=== PATIENT | male | born 1955 | race Caucasian/White ===

== ENCOUNTER 2016-07-23 08:02 | Emergency (ER) | payer BC ==
[~2016-07-23] VITALS: Ht 180.3 cm; Wt 111.0 kg
[~2016-07-23 08:02] MED LIST: AML5T PO; ATOR80TA73 PO; CLOP75TA28 PO; DULA1.5P SC; INSU100I10 IJ; MTP50T PO; OLME20TA5 PF; OMEG-103 PO
--- OUTSIDE RECORDS SUMMARY | 2016-07-23 08:05 | XMS REPORT | Continuity of Care Document ---
Author Author [facility] Address Unknown Phone Unavailable Care Team Providers Care Tactical Deception Plans Officer Name Role Phone Ugo Bartlett MD PCP [phone] Insurance Providers Payer Name Policy Number Subscriber Name Relationship [facility] [id number] Agustin Leiva 20 Self / Same As Patient Advance Directives Directive Response Recorded Date/Time Advanced Directives No 01/06/16 4:16pm Problems Active Problems Medical Problem Onset Date Status Chest pain Unknown Acute Medications Current Home Medications Medication Dose Units Route Directions Days/Qty Instructions Start Date Insulin Glargine,Hum.rec.anlog (Lantus Solostar) 100 Unit/1 Ml 34 Units Injection Daily 15 01/06/16 Dulaglutide 1.5 Mg/0.5 Ml 1.5 Unit SUBCUTANEOUS As Directed 2 01/06/16 Clopidogrel Bisulfate 75 Mg 75 Unit ORAL Daily 30 01/06/16 Bigler-3 Acid Ethyl Esters 1 Gm 1 Gm ORAL Daily 120 01/06/16 Metoprolol Tartrate (Lopressor) 50 Mg 50 Mg ORAL Daily 60 01/06/16 Atorvastatin Calcium 80 Mg 80 Mg ORAL Daily 30 01/06/16 Amlodipine Besylate (Norvasc) 5 Mg 5 Mg ORAL Daily 30 01/06/16 Olmesartan Medoxomil 20 Mg 20 Mg Perfusion Daily 30 01/06/16 Social History Query Response Start Date Stop Date Smoking Status Never smoker Hospital Discharge Instructions Current inpatient/outpatient. Discharge instructions are currently unavailable. Plan of Care Prescriptions Functional Status No functional status results. Allergies, Adverse Reactions, Alerts No known allergies. Immunizations Name Given Type Status Date Influenza Vaccine Received if Current 04/25/15 Historical Historical Vital Signs Acute Vital Signs Vital Response Date/Time Temperature (Fahrenheit) 97.7 01/06/2016 6:17pm Pulse 61 bpm 01/06/2016 6:17pm Respirations 17 01/06/2016 6:17pm Results Laboratory Results Test Name Result Units Flags Reference Collection Date/Time Result Date/ Time Comments White Blood Count 6.69 10^3uL 4.0-11.0 01/06/2016 4:01/06/2016 4: 36pm Red Blood Count 5.18 10^6uL 4.50-5.50 01/06/2016 4:01/06/2016 4: 36pm Hemoglobin 15.3 g/dL 13.5-17.0 01/06/2016 4:01/06/2016 4:36pm Hematocrit 43.30 % 39.00-50.00 01/06/2016 4:01/06/2016 4:36pm Mean Corpuscular Volume 84 FL 80-100 01/06/2016 4:01/06/2016 4: 36pm Mean Corpuscular Hemoglobin 29.5 PG 26.0-34.0 01/06/2016 4:2015 4:36pm Mean Corpuscular Hemoglobin Concent 35.3 g/dL 31.0-37.0 01/06/2016 4: 01/06/2016 4:36pm Red Cell Distribution Width 12.8 % 11.8-15.6 01/06/2016 4:2015 4:36pm Platelet Count 180 10^3uL 150-450 01/06/2016 4:01/06/2016 4:36pm Mean Platelet Volume 10.7 FL H 6.0-9.5 01/06/2016 4:01/06/2016 4: 36pm Neutrophils (%) (Auto) 49 % L 51-67 01/06/2016 4:01/06/2016 4:36pm Lymphocytes (%) (Auto) 38 % 20-46 01/06/2016 4:01/06/2016 4:36pm Monocytes (%) (Auto) 10 % 3-11 01/06/2016 4:01/06/2016 4:36pm Eosinophils (%) (Auto) 2 % 0-4 01/06/2016 4:01/06/2016 4:36pm Basophils (%) (Auto) 0 % 0-2 01/06/2016 4:01/06/2016 4:36pm Neutrophils # (Auto) 3.3 X10^3 01/06/2016 4:01/06/2016 4:36pm Lymphocytes # (Auto) 2.6 X10^3 01/06/2016 4:01/06/2016 4:36pm Monocytes # (Auto) 0.7 X10^3 01/06/2016 4:01/06/2016 4:36pm Eosinophils # (Auto) 0.1 10^3uL 01/06/2016 4:01/06/2016 4:36pm Basophils # (Auto) 0.0 10^3uL 01/06/2016 4:01/06/2016 4:36pm Prothrombin Time 12.6 SEC 11.6-14.2 01/06/2016 4:01/06/2016 4: 43pm Prothromb Time International Ratio 1.0 0.8-1.4 01/06/2016 4: 4:43pm Activated Partial Thromboplast Time 28.5 SEC 24.9-35.9 01/06/2016 4: 01/06/2016 4:43pm Sodium Level 142 mmol/L 135-150 01/06/2016 4:01/06/2016 4:53pm Potassium Level 4.0 mmol/L 3.5-5.1 01/06/2016 4:01/06/2016 4:53pm Chloride Level 106 mmol/L 98-108 01/06/2016 4:01/06/2016 4:53pm Carbon Dioxide Level 24 mmol/L 22-01/06/2016 4:01/06/2016 4: 53pm Anion Gap 15.4 MEQ/L H 3-01/06/2016 4:01/06/2016 4:53pm Blood Urea Nitrogen 20 mg/dL H 7-01/06/2016 4:01/06/2016 4:53pm Creatinine 1.07 mg/dL 0.8-1.5 01/06/2016 4:pm 01/06/2016 4:53pm BUN/Creatinine Ratio 19 10-20 01/06/2016 4:pm 01/06/2016 4:53pm Estimat Glomerular Filtration Rate 85.9 01/06/2016 4:2015 4:53pm Estimated GFR (Non- 71.0 01/06/2016 4:2015 4:53pm Glucose Level 119 mg/dL H 70-110 01/06/2016 4:01/06/2016 4:53pm Calculated Osmolality 277 mosm/L L 280-300 01/06/2016 4:pm 01/06/2016 4:53pm Calcium Level 9.8 mg/dL 8.8-10.8 01/06/2016 4:pm 01/06/2016 4:53pm Calcium/Ionized Calcium Ratio 4.2 mg/dL 3.8-4.6 01/06/2016 4:pm 01/05 4:53pm Total Bilirubin 0.7 mg/dL 0.1-1.0 01/06/2016 4:pm 01/06/2016 4:53pm Alkaline Phosphatase 55 U/L 38-126 01/06/2016 4:pm 01/06/2016 4:53pm Aspartate Amino Transf (AST/SGOT) 38 U/L H 15-37 01/06/2016 4:pm 01/05 4:53pm Alanine Aminotransferase (ALT/SGPT) 43 U/L 30-65 01/06/2016 4: 4:53pm Total Creatine Kinase 642 U/L *H 55-170 01/06/2016 4:pm 01/06/2016 4: 53pm Results called to JESSIKA IN ER who read back the results. Called by Denisse Poon at [id number] Creatine Kinase MB 2.9 ng/mL 0.0-6.0 01/06/2016 4:pm 01/06/2016 4: 56pm Troponin I 0.013 ng/mL 0.010-0.080 01/06/2016 4:25pm 01/06/2016 4:56pm Total Protein 7.6 g/dL 6.4-8.5 01/06/2016 4:25pm 01/06/2016 4:53pm Albumin 4.5 g/dL 3.4-5.0 01/06/2016 4:25pm 01/06/2016 4:53pm Albumin/Globulin Ratio 1.451 1.1-1.8 01/06/2016 4:25pm 01/06/2016 4: 53pm Procedures No known history of procedures. Encounters Encounter Location Arrival/Admit Date Discharge/Depart Date Attending Provider Registered Clinic [facility] 01/06/16 6:14pm ZELALEM MATOS MD Departed Emergency Room [facility] 01/06/16 4:16pm 01/06/16 6:13pm ZELALEM AMTOS MD
[2016-07-23] MEDS ORDERED: INSU300I SQ (08:16)
[2016-07-23 08:53] LABS: BASOPHILS % (AUTO) 1 % (0-2); EOSINOPHILS # (AUTO) 0.1 10^3uL; EOSINOPHILS % (AUTO) 2 % (0-4); LYMPHOCYTES # (AUTO) 2.4 X10^3; MEAN CORPUSCULAR HEMOGLOBIN 29.8 PG (26.0-34.0); MEAN CORPUSCULAR HGB CONC 36.2 g/dL (31.0-37.0); MEAN CORPUSCULAR VOLUME 83 FL (80-100); MEAN PLATELET VOLUME 11.1 FL (6.0-9.5); MONOCYTES # (AUTO) 0.6 X10^3; MONOCYTES % (AUTO) 10 % (3-11); NEUTROPHILS # (AUTO) 3.1 X10^3; NEUTROPHILS % (AUTO) 49 % (51-67); PLATELET COUNT 185 10^3uL (150-450); WHITE BLOOD COUNT 6.34 10^3uL (4.0-11.0)
--- NOTE | 2016-07-23 09:15 | NUR ---
Patient rounds: denies needs.
[2016-07-23 09:20] VITALS: BP 146/88
[2016-07-23] MEDS ORDERED: NAPR550T PO (09:34)
== END 2016-07-23 09:40 | disposition home or self-care (01) ==
LOC: ED 08:03
DX: M25.512 Pain in left shoulder (principal); M79.622 Pain in left upper arm
CPT/HCPCS: 36415; 84484; 85025; 93005; 93010; 99283; 99284